=== PATIENT | female | born 2000 | race Caucasian/White ===

== ENCOUNTER 2022-10-25 16:38 | Outpatient (CLI) | payer OTHER, SELFPAY ==
--- NOTE | ~2022-10-25 | XR_ITS ---
EXAMINATION: XR chest 2V Exam Date/Time: 10/25/2022 17:20 SEISMOGRAPHER HISTORY: Wheezing 2 days, productive cough, excertional SOB. Covid Comparison: 10/11/2010, images only. RESULT: Lines, tubes, and devices: None. Lungs and pleura: Mild streaky perihilar opacities and cuffing. Cardiomediastinal silhouette: Stable. Other: No acute osseous or upper abdominal finding. IMPRESSION: Pulmonary opacities may represent mild bronchiolitis, as can be seen with atypical infection, asthma, aspiration, and small airways disease. Reviewed, dictated and finalized at location K. MOGRAPHER IMPRESSION: Pulmonary opacities may represent mild bronchiolitis, as can be seen with atypi ashley infection, asthma, aspiration, and small airways disease.
== END 2022-10-25 16:39 | disposition home or self-care (01) ==
LOC: CHSIMG 16:46
PROVIDERS: PCP Physician Assistant; Visit Provider Physician Assistant
DX: U07.1 COVID-19 (principal); R91.8 Other nonspecific abnormal finding of lung field
CPT/HCPCS: 71046

== ENCOUNTER 2022-11-09 16:41 | Outpatient (CLI) | payer OTHER, SELFPAY ==
--- NOTE | ~2022-11-09 | XR_ITS ---
EXAMINATION: XR chest 2V Exam Date/Time: 11/09/2022 17:00 CDT HISTORY: BRONCHIOLITIS; CONTINUED COUGH, CHEST PAIN SINCE YESTERDAY. Comparison: 10/25/2022. RESULT: Lines, tubes, and devices: None. Lungs and pleura: Persistent mild streaky perihilar opacities and mild cuffing. Cardiomediastinal silhouette: Stable. Other: No acute osseous or upper abdominal finding. IMPRESSION: Persistent mild bronchiolitic changes. Reviewed, dictated and finalized at location K.
== END 2022-11-09 16:42 | disposition home or self-care (01) ==
LOC: CHSIMG 16:44
PROVIDERS: PCP Physician Assistant; Visit Provider Physician Assistant
DX: J21.9 Acute bronchiolitis, unspecified (principal)
CPT/HCPCS: 71046

== ENCOUNTER 2023-02-17 06:57 | Emergency (ER) | payer OTHER, SELFPAY ==
[2023-02-17 07:07] VITALS: BP 120/88; PULSE 66; TEMP 36.5; O2SAT 96
[2023-02-17 07:13] VITALS: BP 120/88; PULSE 66; TEMP 36.5; O2SAT 96
[2023-02-17] MEDS: SODIUM CHLORIDE 0.9% IV 1,000 ML 999 ML IV CONT (07:35)
[2023-02-17] MEDS: KETOROLAC 30 MG/ML VIAL (*BKC) IV PUSH (07:36)
[2023-02-17] MEDS: diphenhydrAMINE HCl INJ 50 MG/ML VIAL 25 MG IV PUSH (07:37)
[2023-02-17] MEDS: METOCLOPRAMIDE HCL INJ 10 MG/2 ML VIAL IV PUSH (07:37)
--- NOTE | 2023-02-17 07:44 | ED.HA ---
HPI - Headache General Chief Complaint: Headache Stated Complaint: Migraine Time Seen by Provider: 02/17/23 07:18 Source: patient and family Mode of arrival: ambulatory Limitations: no limitations History of Present Illness HPI Narrative: this is a 21-year-old female that presents with her typical migraine-type headache right-sided throbbing with some pressure behind the right frontal and maxillary sinus area with pressure in her right ear with some no fever chills no shortness of breath. The patient did go to emergency room and was given medication it offered some relief but was not able to leaf size picker Imitrex because it was not covered by her insurance. Patient has some nasal congestion and some drainage with some no nausea or vomiting currently, has been nauseated over last 24hours. Otherwise no shortness of breath no chest pain no blurry vision no neurological deficits. MD elicited complaint: migraine Onset (ago): day(s) Onset description: gradually Location: right Severity: moderate Quality & Timing: throbbing and pressure Related Data Home Medications Medication Instructions Recorded Confirmed erenumab-aooe 70 mg/mL 70 mg subcut ONCE 02/17/23 02/17/23 subcutaneous auto-injector (Aimovig Autoinjector) penicillin G benzathine 1,200,000 1,200,000 unit IM [id number] 02/17/23 02/17/23 unit/2 mL intramuscular syringe (Bicillin L-A) Allergies Allergy/AdvReac Type Severity Reaction Status Date / Time No Known Allergies Allergy Verified 02/17/23 07:07 Review of Systems Review of Systems: All systems reviewed & are unremarkable except as noted in HPI and below PMFSH Past Medical History Medical History Migraine Exam Const: General: healthy appearing Nutritional Appearance: well nourished Orientation/consciousness: patient oriented x3 Limitations: no limitations HENMT: Head: normal to inspection Face and sinus: normal facial exam Mouth: Yes Normal oral and palatal mucosa present Eyes: Conjunctivae: conjunctivae normal Pupils: Equal, round and reactive pupils present EOM: EOMs intact bilaterally Neck: Neck: normal visual inspection Chest: Chest palpation & inspection: normal inspection of the chest Resp: Effort & Inspection: normal respiratory effort Cardio: Rate: regular rate Rhythm: regular rhythm GI: GI Palp: Yes Soft to palpation Skin: General skin exam: normal color Rashes: no rashes Neuro: General: patient oriented x3 and moves all extremities Extrem: General: normal to inspection Psych: Mental Status: mental status grossly normal Course Course Emergency Course: patient received IV fluids, 30mg IV Toradol along with Reglan and Benadryl. Reassessment of patient after she has had a little bit of rest and quiet dark room, patient states that she feels better. Patient's vitals are stable will send medication to her pharmacy and advised follow-up with her primary. Vital Signs Vital signs: Vital Signs Temperature 36.5 C 02/17/23 07:07 Pulse Rate 66 02/17/23 07:07 Blood Pressure 120/88 02/17/23 07:07 Pulse Oximetry 96 02/17/23 07:07 Oxygen Delivery Room Air 02/17/23 07:07 Temperature 36.5 C 02/17/23 07:13 Pulse Rate 66 02/17/23 07:13 Blood Pressure 120/88 02/17/23 07:13 Pulse Oximetry 96 02/17/23 07:13 Oxygen Delivery Room Air 02/17/23 07:13 Critical Care Time Critical Care Time Critical Care Time: No Discharge Plan Discharge Clinical Impression: Migraine, Sinusitis Patient Disposition: Home, Self-Care Condition: Stable Instructions: Antibiotic Form, Sinusitis (ED), Migraine Headache (ED) Additional Instructions: advise patient to take medicine as prescribed and follow-up with primary within 1 week for further evaluation treatment. Advised also for chronic sinusitis to take Claritin [id number] daily for the next 1 to 2 weeks along with Flonase.
[2023-02-17 08:29] VITALS: BP 106/60; PULSE 55; TEMP 35.7; O2SAT 100
== END 2023-02-17 08:30 | disposition home or self-care (01) ==
PROVIDERS: Emergency Provider Emergency Medicine
DX: G43.909 Migraine, unspecified, not intractable, without status migrainosus (principal); J32.9 Chronic sinusitis, unspecified
CPT/HCPCS: 96361; 96374; 96375; 99284; J1200; J1885; J2765; J7030

== ENCOUNTER 2023-07-02 10:43 | Outpatient (CLI) | payer OTHER, SELFPAY ==
--- NOTE | 2023-07-02 | ECHO_ITS ---
Patient Info Name: Deneen Arnett Age: 23 years : 2000 Gender: Female Ht: 66 in Wt: 190 lbs BSA: 2.03 m2 HR: 91 bpm BP: 135 / 80 mmHg Heart Rhythm: Sinus Rhythm Technical Quality: Good Exam Date: 07/02/2023 11:04 AM Exam Location: Echo Lab Patient Status: Outpatient Admit Date: 07/02/2023 Staff Ordering Physician: SUSANA MCGHEE Attending Provider: SUSANA MCGHEE Exam Type: CA echo doppler color flow Study Info Indications - palpatation Complete two-dimensional, color flow and Doppler transthoracic echocardiogram is performed. Summary 1. Complete two-dimensional, color flow and Doppler transthoracic echocardiogram is performed. 2. Left ventricular chamber dimension is normal. 3. Left ventricular systolic function is normal, estimated at 60-65%. 4. There is no increased left ventricular wall thickness. 5. The left ventricular diastolic function is normal. 6. There is mild mitral valve regurgitation. 7. There is mild tricuspid valve regurgitation. Left Ventricle Left ventricular chamber dimension is normal. Left ventricular systolic function is normal, estimated at 60-65%. There is no increased left ventricular wall thickness. The left ventricular diastolic function is normal. Right Ventricle Right ventricular chamber dimension is normal. Right ventricular systolic function is normal. Left Atria Left atrial chamber dimension is normal. Right Atria Right atrial chamber dimension is normal. Atrial Septum Intact interatrial septum visualized by color flow imaging. Aortic Valve The aortic valve is trileaflet. There is no aortic valve sclerosis. There is no aortic valve stenosis. There is trace aortic valve regurgitation. Pulmonic Valve The pulmonic valve is normal. There is no pulmonic valve stenosis. There is trace pulmonic regurgitation. Mitral Valve The mitral valve has normal leaflets. There is no mitral valve stenosis. There is mild mitral valve regurgitation. Tricuspid Valve The tricuspid valve leaflets are normal. There is no significant tricuspid valve stenosis. There is mild tricuspid valve regurgitation. No pulmonary hypertension, estimated pulmonary arterial systolic pressure is 22 mmHg. Pericardium/Pleural The pericardium appears normal. There is no pericardial effusion. Inferior Vena Cava Normal inferior vena cava with >50% collapse upon inspiration consistent with normal right atrial pressure, 10 mmHg. Aorta The aortic root size at the sinus of Valsalva is normal. Left Ventricular Outflow Tract Name Value Normal LVOT 2D LVOT Diameter 1.9 cm LVOT Doppler LVOT Peak Gradient 5 mmHg LVOT Mean Gradient 3 mmHg LVOT VTI 26 cm LVOT VTI/AV VTI Ratio 0.8 LVOT Stroke Volume 70 ml LVOT CO 5.2 l/min LVOT CI 2.6 l/min/m2 Pulmonic Valve Name Value Normal RVOT D
== END 2023-07-02 10:44 | disposition home or self-care (01) ==
DX: R00.2 Palpitations (principal); I08.1 Rheumatic disorders of both mitral and tricuspid valves
CPT/HCPCS: 93306

== ENCOUNTER 2023-08-02 07:53 | Emergency (ER) | payer OTHER, SELFPAY ==
[2023-08-02] VITALS (25 sets, daily range): BP systolic 107–144; BP diastolic 60–133; PULSE 62–101; RESP 14–30; TEMP 36.3; O2SAT 97–100
--- NOTE | ~2023-08-02 | XR_ITS ---
EXAMINATION: XR chest 1V portable 08/02/2023 08:25 INDICATION: Syncope PROCEDURE: AP portable chest COMPARISON: 11/09/2022 FINDINGS: The lungs are clear. The cardiomediastinal silhouette is within normal limits. There are no pleural effusions. There is no pneumothorax suspected. IMPRESSION: 1: NO ACUTE CARDIOPULMONARY DISEASE. Reviewed, dictated and finalized at location D. ION CONTROL SPECIALIST
--- NOTE | 2023-08-02 07:59 | ECG_ITS ---
Measurements Intervals [place] Rate: 98 P: 48 WA: 132 QRS: 50 QRSD: 104 T: 35 QT: 346 QTc: 442 Interpretive Statements SINUS RHYTHM NO PREVIOUS ECG AVAILABLE FOR COMPARISON Electronically Signed On 08-02-2023 13:30:12 RELAY ASSOCIATE by Chantal Bartholomew M.D.
--- NOTE | 2023-08-02 08:15 | ED.DIZZY ---
HPI - Dizziness General Chief Complaint: Syncope Stated Complaint: SYNCOPAL EVENT Time Seen by Provider: 08/02/23 08:05 History of Present Illness HPI Narrative: 23-year-old female presenting to the emergency department for evaluation after having a syncopal episode. Patient states that she got out of bed walked a few feet then had lightheaded dizziness and had a brief episode of loss of consciousness. Patient states she was recently diagnosed with sinus tachycardia and is going to have follow-up with Cardiology. Patient was started on metoprolol a few months ago. Related Data Home Medications Medication Instructions Recorded Confirmed almotriptan malate 12.5 mg tablet See Rx Instructions PO .COMPLEX 05/19/23 05/19/23 erenumab-aooe 70 mg/mL 140 mg subcut MONTHLY 05/19/23 05/19/23 subcutaneous auto-injector (Aimovig Autoinjector) etonogestrel 68 mg subdermal 1 implant subdermal ONCE 05/19/23 05/19/23 implant (Nexplanon) famotidine 40 mg tablet (Pepcid) 40 mg PO DAILY 05/19/23 05/19/23 pantoprazole 40 mg tablet,delayed 40 mg PO QAM 05/19/23 05/19/23 release metoprolol succinate 25 mg mg PO 08/02/23 tablet,extended release 24 hr Allergies Allergy/AdvReac Type Severity Reaction Status Date / Time Sulfa (Sulfonamide Allergy Intermediate Hives Verified 08/02/23 08:01 Antibiotics) Review of Systems Review of Systems: All systems reviewed & are unremarkable except as noted in HPI and below PMFSH Past Medical History Medical History Anxiety Arthritis Chronic ear infection GERD (gastroesophageal reflux disease) Migraine Rheumatic heart disease Tonsil stone Surgical History Surgical History History of pyeloplasty (~2000) Family History Family History Father Hypertension Diabetes mellitus Social History Social History Social History: Caffeine- coffee/tea Smoking status: Never smoker Alcohol intake: current Alcohol use details: rarely Substance use: never Substance use type: does not use Lack of Transportation: No Lack of Food: Never True Current Housing: I Have Housing Concerned About Future Housing: No Difficulty Paying Gas/Electric Bills: No Difficulty Paying for Meds: No Currently Unemployed: No Education: Trade/Vocational Certificate Difficulty w/ Childcare or Family Care: No Occupation/Education: occupation Gender identity (if verbalized by the patient): Female Agree to blood products: Yes Exam Narrative: APPEARANCE: Well appearing, no pain, no distress, well-nourished. HEAD: normocephalic, atraumatic. EYES: PERRLA/EOMI, conjunctivae clear. NOSE: Normal no drainage EARS:TMS clear with good light reflex. THROAT: Pharynx clear, no exudate. NECK: Supple. No adenopathy, no masses. RESPIRATORY: Airway patent, respirations nonlabored. Clear to auscultation bilaterally, no rales, rhonchi, wheezing. CARDIOVASCULAR: Regular rate and rhythm without murmurs rubs or gallops. ABDOMINAL: Soft, nontender, nondistended, normal bowel sounds MUSCULOSKELETAL: Moves all extremities. Strength/ROM intact, No edema, No calf tenderness. NEURO: Alert. Cranial nerves II through XII intact. Grossly intact SKIN: Warm, dry. Normal Color Course Course Emergency Course: 23-year-old female presenting emergency department for evaluation after having a syncopal episode. Patient is afebrile with no leukocytosis and a stable hemoglobin. Patient has no significant electrolyte abnormalities. Chest x-ray shows no acute cardiopulmonary abnormality. Patient did feel improved with treatment. Patient was encouraged of close follow-up with her primary care physician for additional outpatient testing. Patient does have Follow-up scheduled c
[2023-08-02 08:17] LABS: Basophils Percent Auto 0.5 % (0.2-1.2); Eosinophils Absolute Auto 0.1 K/mm3 (0-0.3); Eosinophils Percent Auto 1.6 % (0-4.4); Hematocrit 47.7 % (37.0-47.0); Hemoglobin 15.6 g/dL (12.0-15.0); Immature Granulocyte Absolute 0.02 K/mm3 (0.00-0.031); Immature Granulocyte Percent A 0.3 % (0-0.5); Lymphocytes Absolute Auto 1.75 K/mm3 (0.9-3.2); Lymphocytes Percent Auto 21.9 % (18.3-44.2); Mean Corpuscular HGB Conc 32.7 g/dl (32-36); Mean Corpuscular Hemoglobin 28.9 pg (26-34); Mean Corpuscular Volume 88.3 fl (80-100); Mean Platelet Volume 9.7 fl (7.4-10.4); Monocytes Absolute Auto 0.5 K/mm3 (0.1-0.6); Monocytes Percent Auto 6.4 % (2.6-8.5); Neutrophils Absolute Auto 5.5 K/mm3 (1.3-6.7); Neutrophils Percent Auto 69.3 % (45.5-73.1); Platelet Count Result 333 k/mm3 (150-375); Red Cell Distribution Width 12.5 % (11.5-14.5)
[2023-08-02 08:31] LABS: Alanine Aminotransferase 17 U/L (6-35); Albumin Level 4.9 g/dL (3.5-5.1); Alkaline Phosphatase 85 U/L (38-126); Anion Gap 9 mmol/L (8-16); Aspartate Amino Transferase 20 U/L (14-36); Bilirubin,Total 0.9 mg/dL (0.2-1.3); Blood Urea Nitrogen 6 mg/dL (7-17); Calcium 9.7 mg/dL (8.4-10.2); Carbon Dioxide 26 mmol/L (22-30); Chloride 106 mmol/L (98-107); Estimated CRCL calculation 120 ml/min; Estimated Glomerular Filt Rate > 60; Glucose 103 mg/dL (65-110); Potassium 3.8 mmol/L (3.4-5.0); Sodium 141 mmol/L (137-145)
[2023-08-02] MEDS: SODIUM CHLORIDE 0.9% IV 1,000 ML 999 ML IV CONT ×2 (08:37→09:54)
--- NOTE | 2023-08-02 10:10 | PC.NURSE ---
Pt's heart rate raises to 110's with activity. Heart rate goes back to the 70's in a few seconds.
== END 2023-08-02 12:19 | disposition home or self-care (01) ==
PROVIDERS: Emergency Provider Emergency Medicine
DX: R55 Syncope and collapse (principal); R00.0 Tachycardia, unspecified; F41.9 Anxiety disorder, unspecified; M19.90 Unspecified osteoarthritis, unspecified site; K21.9 Gastro-esophageal reflux disease without esophagitis
CPT/HCPCS: 36415; 71045; 80053; 81025; 85025; 93005; 96360; 96361; 99284; J7030